=== PATIENT | female | born 1945 | race Hispanic/Latino ===

== ENCOUNTER 2021-03-20 09:46 | Outpatient (CLI) | payer SELFPAY, OTHER | END 2021-03-20 09:47 | disposition home or self-care (01) | LOC: CSHWCC 09:46 | PROVIDERS: ATTEND Nurse Practitioner Family | DX: T81.89XA Other complications of procedures, not elsewhere classified, initial encounter (principal); E66.01 Morbid (severe) obesity due to excess calories; I11.0 Hypertensive heart disease with heart failure; I26.92 Saddle embolus of pulmonary artery without acute cor pulmonale; I50.33 Acute on chronic diastolic (congestive) heart failure | CPT/HCPCS: 97605; 99203; G0463 ==

== ENCOUNTER 2021-03-23 09:42 | Outpatient (CLI) | payer SELFPAY, OTHER | END 2021-03-23 09:43 | disposition home or self-care (01) | LOC: CSHWCC 09:42 | PROVIDERS: ATTEND Nurse Practitioner Family | DX: T81.89XD Other complications of procedures, not elsewhere classified, subsequent encounter (principal); I11.0 Hypertensive heart disease with heart failure; I50.33 Acute on chronic diastolic (congestive) heart failure; I26.92 Saddle embolus of pulmonary artery without acute cor pulmonale; E66.01 Morbid (severe) obesity due to excess calories; K57.20 Diverticulitis of large intestine with perforation and abscess without bleeding | CPT/HCPCS: 97605 ==

== ENCOUNTER 2021-03-27 07:42 | Outpatient (CLI) | payer SELFPAY, OTHER | END 2021-03-27 07:43 | disposition home or self-care (01) | LOC: CSHWCC 07:42 | PROVIDERS: ATTEND Nurse Practitioner Family | DX: T81.89XD Other complications of procedures, not elsewhere classified, subsequent encounter (principal); I11.0 Hypertensive heart disease with heart failure; I50.33 Acute on chronic diastolic (congestive) heart failure; I26.92 Saddle embolus of pulmonary artery without acute cor pulmonale; K57.20 Diverticulitis of large intestine with perforation and abscess without bleeding; E66.01 Morbid (severe) obesity due to excess calories ==

== ENCOUNTER 2021-03-30 08:00 | Outpatient (CLI) | payer SELFPAY, OTHER | END 2021-03-30 08:01 | disposition home or self-care (01) | LOC: CSHWCC 08:00 | PROVIDERS: ATTEND Nurse Practitioner Family | DX: T81.89XD Other complications of procedures, not elsewhere classified, subsequent encounter (principal); I26.92 Saddle embolus of pulmonary artery without acute cor pulmonale; I11.0 Hypertensive heart disease with heart failure; I50.33 Acute on chronic diastolic (congestive) heart failure; K57.20 Diverticulitis of large intestine with perforation and abscess without bleeding; E66.01 Morbid (severe) obesity due to excess calories ==

== ENCOUNTER 2021-04-06 08:33 | Outpatient (CLI) | payer SELFPAY, OTHER | END 2021-04-06 08:34 | disposition home or self-care (01) | LOC: CSHWCC 08:33 | PROVIDERS: ATTEND Nurse Practitioner Family | DX: T81.89XD Other complications of procedures, not elsewhere classified, subsequent encounter (principal); K57.20 Diverticulitis of large intestine with perforation and abscess without bleeding; E66.01 Morbid (severe) obesity due to excess calories; I26.92 Saddle embolus of pulmonary artery without acute cor pulmonale; I11.0 Hypertensive heart disease with heart failure; I50.33 Acute on chronic diastolic (congestive) heart failure | CPT/HCPCS: 99212; G0463 ==

== ENCOUNTER 2021-04-20 08:24 | Outpatient (CLI) | payer OTHER | END 2021-04-20 08:25 | disposition home or self-care (01) | LOC: CSHWCC 08:24 | PROVIDERS: ATTEND Nurse Practitioner Family | DX: T81.89XD Other complications of procedures, not elsewhere classified, subsequent encounter (principal); I11.0 Hypertensive heart disease with heart failure; I50.33 Acute on chronic diastolic (congestive) heart failure; E66.01 Morbid (severe) obesity due to excess calories; I26.92 Saddle embolus of pulmonary artery without acute cor pulmonale; K57.20 Diverticulitis of large intestine with perforation and abscess without bleeding ==

== ENCOUNTER 2025-05-02 09:52 | Outpatient (CLI) | payer OTHER | END 2025-05-02 09:53 | disposition home or self-care (01) | LOC: CSHWCC 09:52 | PROVIDERS: ATTEND Nurse Practitioner Family | DX: T81.328D Disruption or dehiscence of closure of other specified internal operation (surgical) wound, subsequent encounter (principal); S31.105D Unspecified open wound of abdominal wall, periumbilic region without penetration into peritoneal cavity, subsequent encounter; E11.622 Type 2 diabetes mellitus with other skin ulcer; L98.499 Non-pressure chronic ulcer of skin of other sites with unspecified severity | CPT/HCPCS: 11042; 99213; G0463 ==